=== PATIENT | male | born 1960 | race Caucasian/White ===

== ENCOUNTER 2025-06-01 06:40 | Inpatient (IN) | payer MEDICARE, OTHER ==
[~2025-06-01] VITALS: Ht 167.6 cm; Wt 83.9 kg
[2025-06-01] MEDS ORDERED: SUGAMMADEX SODIUM 200 MG/2 ML VIAL IV ONE (07:07)
[2025-06-01] MEDS ORDERED: MIDAZOLAM HCL 2 MG/2ML VIAL ONE (07:07)
[2025-06-01] MEDS ORDERED: LIDOCAINE 2% JEL UROJET 10 ML MM ONE (07:07)
[2025-06-01] MEDS ORDERED: FENTANYL PF 100MCG/2ML AMPUL ONE (07:07)
[2025-06-01] MEDS ORDERED: OXYMETAZOLINE HCL NASAL SPRAY 30 ML BOTTLE NS ONE ×2 (07:08→07:21)
[2025-06-01] MEDS ORDERED: ROCURONIUM BROMIDE 50 MG/5 ML ONE (07:08)
[2025-06-01] MEDS ORDERED: LIDOCAINE 2%-EPI 1:100,000 30 ML VIAL ONE (07:20)
[2025-06-01] MEDS ORDERED: VANCOMYCIN 1 GM VIAL ONE (07:20)
[2025-06-01] MEDS ORDERED: dexaMETHasone SOD PHOSPHATE 2 ML ONE (07:20)
[2025-06-01 11:25] VITALS: BP 173/86; TEMP 97.6; O2SAT 98
[2025-06-01] MEDS ORDERED: ONDANSETRON HCL/PF 4 MG/2 ML VIAL IV PRN (11:30)
[2025-06-01] MEDS ORDERED: HYDROMORPHONE 1 MG/1 ML DISP.SYRIN IV PRN (11:30)
[2025-06-01] MEDS ORDERED: ASPI-1420 PO (11:43)
[2025-06-01] MEDS ORDERED: NIFE-34 PO (11:43)
[2025-06-01] MEDS ORDERED: ROSU10TA2 PO (11:43)
[2025-06-01] MEDS ORDERED: LOSA50TA39 PO (11:43)
[2025-06-01] MEDS ORDERED: ATEN50TA PO (11:43)
[2025-06-01] MEDS ORDERED: OMEP40CA21 PO (11:43)
[2025-06-01] MEDS ORDERED: HYDR-4077 PO (11:43)
[2025-06-01] MEDS ORDERED: NIFEDIPINE XL 60 MG TAB.ER.24 PO SCH (12:00)
[2025-06-01] MEDS ORDERED: ACETAMINOPHEN 325 MG TABLET PO PRN (12:30)
[2025-06-01] MEDS ORDERED: MAGNESIUM HYDROXIDE 30 ML UDC PO PRN (12:30)
[2025-06-01] MEDS ORDERED: MAG HYDROX/AL HYDROX/SIMETH 30 ML UDC PO PRN (12:30)
[2025-06-01] MEDS ORDERED: ONDANSETRON HCL/PF 4 MG/2 ML VIAL IVP PRN (12:30)
[2025-06-01] MEDS ORDERED: Z GUARD REMEDY 4 OZ OINT TP PRN (12:30)
[2025-06-01 13:00] VITALS: BP 168/84
[2025-06-01] MEDS: HYDROCODONE/APAP 10/325MG TABLET PO PRN (14:15)
[2025-06-01 16:18] VITALS: BP 160/82; TEMP 97.9; O2SAT 97
[2025-06-01] MEDS: ATENOLOL 50 MG TABLET PO SCH (16:18)
[2025-06-01] MEDS: LOSARTAN POTASSIUM 50 MG TABLET PO SCH (16:18)
[2025-06-01 17:05] VITALS: BP 159/81
[2025-06-01] MEDS: VANCOMYCIN 1 GM in IV D5W 250ml IV SCH (18:13)
[2025-06-01] MEDS: IV NS 0.9% 1,000 ML IV PRN (18:13)
[2025-06-01 20:00] VITALS: BP 168/81; TEMP 99.3; O2SAT 97
[2025-06-01] MEDS: ACETAMINOPHEN 325 MG TABLET PO PRN (21:58)
[2025-06-02 07:30] VITALS: BP 161/77; TEMP 98.6; O2SAT 97
[2025-06-02 08:19] LABS: PLATELET COUNT (AUTO) 220 K/uL (150-450); RED BLOOD CELL COUNT(AUTO) 4.25 MIL/uL (4.5-6.0); RED CELL DISTRIBUTION WIDTH 13.8 % (11.5-15.0); WHITE BLOOD COUNT (AUTO) 12.7 K/uL (4.3-11.0)
[2025-06-02] MEDS: NIFEdipine XL (30MG) 30 MG TAB PO SCH (08:29)
[2025-06-02] MEDS: ASPIRIN EC 81 MG TABLET.DR PO SCH (08:29)
[2025-06-02] MEDS: ATORVASTATIN 40 MG TABLET PO SCH (08:29)
[2025-06-02 08:35] LABS: ASPARTATE AMINOTRANSFERASE 18.0 U/L (15-37); CALCIUM, SERUM 8.6 mg/dL (8.5-10.1); CREATININE 1.0 mg/dL (0.6-1.3); PHOSPHORUS 3.4 mg/dL (2.5-4.9); SODIUM SERUM 141.0 mmol/L (136-145); TOTAL PROTEIN, SERUM 6.8 g/dL (6.4-8.2); UREA NITROGEN, BLOOD 14.0 mg/dL (7-18)
[2025-06-02 08:45] VITALS: BP 161/77
[2025-06-02] MEDS: VALSARTAN 80 MG TABLET PO SCH (08:45)
[2025-06-02] MEDS ORDERED: NIFEDIPINE XL 60 MG TAB.ER.24 PO SCH (09:00)
[2025-06-03] MEDS ORDERED: VALSARTAN 80 MG TABLET PO SCH (09:00)
== END 2025-06-02 13:32 | disposition home or self-care (01) | DRG 141 ==
LOC: DS 06:40 → MED 06:42
PROVIDERS: ADMIT Nurse Practitioner Acute Care; ATTEND Nurse Practitioner Acute Care
PROC: 0NSR04Z Reposition Maxilla with Internal Fixation Device, Open Approach (ICD-10-PCS; 2025-06-01)
PROC: 0NUR07Z Supplement Maxilla with Autologous Tissue Substitute, Open Approach (ICD-10-PCS; 2025-06-01)
PROC: 09U Ear, Nose, Sinus, Supplement (ICD-10-PCS; 2025-06-01)
PROC: 0N5V0ZZ Destruction of Left Mandible, Open Approach (ICD-10-PCS; 2025-06-01)
PROC: 0N5T0ZZ Destruction of Right Mandible, Open Approach (ICD-10-PCS; 2025-06-01)
PROC: 0NUV07Z Supplement Left Mandible with Autologous Tissue Substitute, Open Approach (ICD-10-PCS; 2025-06-01)
PROC: 0NUT07Z Supplement Right Mandible with Autologous Tissue Substitute, Open Approach (ICD-10-PCS; 2025-06-01)
PROC: 0NSV04Z Reposition Left Mandible with Internal Fixation Device, Open Approach (ICD-10-PCS; 2025-06-01)
PROC: 0NST04Z Reposition Right Mandible with Internal Fixation Device, Open Approach (ICD-10-PCS; 2025-06-01)
PROC: 0N5R0ZZ Destruction of Maxilla, Open Approach (ICD-10-PCS; principal; 2025-06-01 07:30)
DX: S02.40CA Maxillary fracture, right side, initial encounter for closed fracture (principal); S06.9XAA Unspecified intracranial injury with loss of consciousness status unknown, initial encounter; M27.2 Inflammatory conditions of jaws; S02.609A Fracture of mandible, unspecified, initial encounter for closed fracture; I10 Essential (primary) hypertension; E78.5 Hyperlipidemia, unspecified; R73.03 Prediabetes; E66.9 Obesity, unspecified; Z68.29 Body mass index [BMI] 29.0-29.9, adult; X58.XXXA Exposure to other specified factors, initial encounter; Y92.9 Unspecified place or not applicable
CPT/HCPCS: 36415; 80053-TC; 82962-TC; 83735-TC; 84100-TC; 85025-TC; 87081-TC; A4217; A4223; A4338; C1713; G0378; J1100; J2250; J2405; J2704; J3010; J3373; J3490; J7040; J7060